=== PATIENT | female | born 1960 | race Caucasian/White ===

== ENCOUNTER 2017-09-16 10:58 | Emergency (ER) | payer OTHER ==
[~2017-09-16] VITALS: Ht 167.6 cm; Wt 113.4 kg
[~2017-09-16 10:58] MED LIST: Ativan1 MG PO; CITA20 PO; CLOZ100 PO; DIPH50 PO; DIVA250ER PO; FAMO20 PO; FAMO40 PO; FURO80 PO; GEODON; HYDHCL25 PO; HYDPAM25; HYDPAM25 PO; Haldol 5 mg Tab5 MG PO; INVEGA; LAVAP17G PO; LEVSOD100 PO; LEVSOD125; LORA1 PO; METPRE4DP PO; MULVITMIND PO; Metamucil Smooth1 EA PO; PRED20 PO; RANI150 PO; SULTRIDS PO; SYNTHROID112 MCG PO; TRAZ100; TRAZ100 PO; ZIPR80; ZIPR80 PO
[2017-09-16] MEDS ORDERED: OXYB5 PO (11:53)
[2017-09-16] MEDS ORDERED: NYSTATIN1 EAC1 TOP (11:54)
[2018-08-11] MEDS ORDERED: Anucort-Hc25 MG PR (20:17)
[2018-08-18] MEDS ORDERED: Kristalose20 GM PO (14:01)
== END 2017-09-16 13:28 | disposition home or self-care (01) ==
LOC: ER 10:58
DX: R53.1 Weakness (principal); R05 Cough; F41.9 Anxiety disorder, unspecified; E66.01 Morbid (severe) obesity due to excess calories; R50.9 Fever, unspecified; W18.30XA Fall on same level, unspecified, initial encounter; Z88.0 Allergy status to penicillin; Z88.8 Allergy status to other drugs, medicaments and biological substances; Z79.899 Other long term (current) drug therapy; I50.9 Heart failure, unspecified; Z87.891 Personal history of nicotine dependence
CPT/HCPCS: 36415; 71046; 73502; 82947; 99283

== ENCOUNTER → 2019-04-29 | Outpatient (CLI) | payer OTHER ==
[~2019-04-29] MED LIST changes: +Anucort-Hc25 MG PR; +BISA5EC PO; +CITRATE OF MAG296 ML PO; +Kristalose20 GM PO; +Miralax17 GM PO; +NYSTATIN1 EAC1 TOP; +OXYB5 PO
== END | disposition home or self-care (01) ==
LOC: LAB SHORT 13:42 → LAB 13:42
DX: N76.0 Acute vaginitis (principal); N95.2 Postmenopausal atrophic vaginitis
CPT/HCPCS: 87070; 87205

== ENCOUNTER 2019-05-15 11:22 | Emergency (ER) | payer OTHER ==
[~2019-05-15] VITALS: Ht 167.6 cm; Wt 112.0 kg
[~2019-05-15 11:22] MED LIST changes: -BISA5EC PO; -CITRATE OF MAG296 ML PO; -Miralax17 GM PO
[2019-05-15] MEDS ORDERED: BISA5EC PO (12:58)
[2019-05-15] MEDS ORDERED: CITRATE OF MAG296 ML PO (12:58)
== END 2019-05-15 13:43 | disposition home or self-care (01) ==
LOC: ER 11:22
DX: K59.00 Constipation, unspecified (principal); F31.9 Bipolar disorder, unspecified; F20.9 Schizophrenia, unspecified; I50.9 Heart failure, unspecified; Z79.899 Other long term (current) drug therapy; Z88.0 Allergy status to penicillin; Z88.8 Allergy status to other drugs, medicaments and biological substances; Z91.018 Allergy to other foods
CPT/HCPCS: 74018; 99283-25

== ENCOUNTER 2019-05-19 08:55 | Emergency (ER) | payer OTHER ==
[~2019-05-19] VITALS: Ht 167.6 cm; Wt 113.4 kg
[~2019-05-19 08:55] MED LIST changes: +BISA5EC PO; +CITRATE OF MAG296 ML PO
[2019-05-19 09:59] LABS: BASOPHILS ABSOLUTE AUTO 0.02 K/mm3 (0.00-0.23); BASOPHILS PERCENT AUTO 0 % (0-2); EOSINOPHILS PERCENT AUTO 0 % (0-6); Hematocrit 41.7 % (33.0-51.0); Hemoglobin 12.9 g/dL (11.5-16.0); IMMATURE GRAN ABSOLUTE AUTO 0.09 K/mm3 (0.00-0.10); IMMATURE GRAN PERCENT AUTO 1 % (0-1); LYMPHOCYTES ABSOLUTE AUTO 1.07 K/mm3 (0.84-5.20); LYMPHOCYTES PERCENT AUTO 17 % (21-46); MONOCYTES ABSOLUTE AUTO 0.84 K/mm3 (0.16-1.47); MONOCYTES PERCENT AUTO 13 % (4-13); Mean Corpuscular HGB 30.4 pg (26.0-34.0); Mean Corpuscular HGB Conc 30.9 g/dL (31.5-36.5); Mean Corpuscular Volume 98 fL (80-100); Mean Platelet Volume 10.4 fL (9.1-12.4); NEUTROPHILS ABSOLUTE AUTO 4.46 K/mm3 (1.96-9.15); NEUTROPHILS PERCENT AUTO 69 % (41-73); Platelet Count 244 K/mm3 (150-400); RDW Coefficient Variation 14.1 % (11.7-14.2); Red Blood Cell Count 4.24 M/mm3 (3.80-5.20); White Blood Cell Count 6.48 K/mm3 (4.00-11.30)
[2019-05-19 10:21] LABS: Anion Gap 5 mmol/L (6-16); Blood Urea Nitrogen 12 mg/dL (8-24); Bun/Creatinine Ratio 18.7 (12.0-20.0); CO2, Blood 31 mmol/L (21-32); Calcium, Blood 8.4 mg/dL (8.5-10.1); Chloride, Blood 104 mmol/L (98-108); Creatinine, Blood 0.64 mg/dL (0.40-1.00); Glomerular Filtration Rate >60 (60-); Glucose, Blood 109 mg/dL (70-99); Potassium, Blood 3.8 mmol/L (3.5-5.5); Sodium, Blood 140 mmol/L (136-145); Valproic Acid 39.1 ug/mL (50.0-100.0)
[2019-05-19] MEDS ORDERED: Miralax17 GM PO (13:10)
== END 2019-05-19 13:34 | disposition home or self-care (01) ==
LOC: ER 08:55
PROVIDERS: Emergency Medicine
DX: K59.00 Constipation, unspecified (principal); K64.4 Residual hemorrhoidal skin tags; F31.9 Bipolar disorder, unspecified; F20.9 Schizophrenia, unspecified; Z87.891 Personal history of nicotine dependence; Z88.0 Allergy status to penicillin; Z91.018 Allergy to other foods; Z88.8 Allergy status to other drugs, medicaments and biological substances; Z79.899 Other long term (current) drug therapy
CPT/HCPCS: 36415; 80048; 80164; 84443; 85025; 99283

== ENCOUNTER 2019-06-17 11:40 | Emergency (ER) | payer OTHER ==
[~2019-06-17] VITALS: Ht 167.6 cm; Wt 116.6 kg
[~2019-06-17 11:40] MED LIST changes: +Miralax17 GM PO
== END 2019-06-17 14:29 | disposition home or self-care (01) ==
LOC: ER 11:40
DX: S40.022A Contusion of left upper arm, initial encounter (principal); S30.1XXA Contusion of abdominal wall, initial encounter; I50.9 Heart failure, unspecified; F31.9 Bipolar disorder, unspecified; E03.9 Hypothyroidism, unspecified; Z88.0 Allergy status to penicillin; Z88.8 Allergy status to other drugs, medicaments and biological substances; Z91.018 Allergy to other foods; Z79.899 Other long term (current) drug therapy; Z87.891 Personal history of nicotine dependence; W06.XXXA Fall from bed, initial encounter
CPT/HCPCS: 71046; 73060; 73070; 73552; 99283-25

== ENCOUNTER 2019-11-23 19:14 | Emergency (ER) | payer OTHER ==
[~2019-11-23] VITALS: Ht 157.5 cm; Wt 120.2 kg
[2019-11-23 20:43] LABS: BASOPHILS ABSOLUTE AUTO 0.04 K/mm3 (0.00-0.23); BASOPHILS PERCENT AUTO 1 % (0-2); EOSINOPHILS ABSOLUTE AUTO 0.01 K/mm3 (0.00-0.68); EOSINOPHILS PERCENT AUTO 0 % (0-6); Hematocrit 43.3 % (33.0-51.0); Hemoglobin 13.7 g/dL (11.5-16.0); IMMATURE GRAN ABSOLUTE AUTO 0.09 K/mm3 (0.00-0.10); IMMATURE GRAN PERCENT AUTO 1 % (0-1); LYMPHOCYTES ABSOLUTE AUTO 2.03 K/mm3 (0.84-5.20); LYMPHOCYTES PERCENT AUTO 32 % (21-46); MONOCYTES ABSOLUTE AUTO 0.85 K/mm3 (0.16-1.47); MONOCYTES PERCENT AUTO 14 % (4-13); Mean Corpuscular HGB 30.6 pg (26.0-34.0); Mean Corpuscular HGB Conc 31.6 g/dL (31.5-36.5); Mean Corpuscular Volume 97 fL (80-100); Mean Platelet Volume 10.4 fL (9.1-12.4); NEUTROPHILS ABSOLUTE AUTO 3.29 K/mm3 (1.96-9.15); NEUTROPHILS PERCENT AUTO 52 % (41-73); Platelet Count 228 K/mm3 (150-400); RDW Coefficient Variation 13.2 % (11.7-14.2); RDW Standard Deviation 47.4 fL (35.1-46.3); Red Blood Cell Count 4.48 M/mm3 (3.80-5.20); White Blood Cell Count 6.31 K/mm3 (4.00-11.30)
[2019-11-23 21:03] LABS: Alanine Aminotransfer (ALT/SGP 22 U/L (12-78); Albumin, Blood 3.2 g/dL (3.4-5.0); Albumin/Globulin Ratio 0.9 (0.8-1.8); Alk Phos 93 U/L (50-136); Anion Gap 6 mmol/L (6-16); Aspartate Aminotrans (AST/SGOT 17 U/L (12-37); Bilirubin, Total 0.1 mg/dL (0.1-1.0); Blood Urea Nitrogen 10 mg/dL (8-24); Bun/Creatinine Ratio 15.5 (12.0-20.0); CO2, Blood 30 mmol/L (21-32); Calcium, Blood 8.7 mg/dL (8.5-10.1); Chloride, Blood 102 mmol/L (98-108); Creatinine, Blood 0.65 mg/dL (0.40-1.00); Globulin, Blood 3.6 g/dL (2.2-4.0); Glomerular Filtration Rate >60 (60-); Glucose, Blood 137 mg/dL (70-99); Potassium, Blood 3.8 mmol/L (3.5-5.5); Sodium, Blood 138 mmol/L (136-145); Total Protein, Blood 6.8 g/dL (6.4-8.2)
[2019-11-23] MEDS ORDERED: HYDACE25S PR (21:33)
== END 2019-11-23 21:45 | disposition home or self-care (01) ==
LOC: ER 19:14
PROVIDERS: Physician Assistant
DX: K64.4 Residual hemorrhoidal skin tags (principal); K64.8 Other hemorrhoids; F20.9 Schizophrenia, unspecified; F31.9 Bipolar disorder, unspecified; I50.9 Heart failure, unspecified; Z88.0 Allergy status to penicillin; Z88.8 Allergy status to other drugs, medicaments and biological substances; Z91.018 Allergy to other foods; Z79.899 Other long term (current) drug therapy; Z87.891 Personal history of nicotine dependence
CPT/HCPCS: 36415; 80053; 82272; 85025; 86850; 86900; 86901; 93005; 93010; 99283-25

== ENCOUNTER 2020-01-26 07:21 | Emergency (ER) | payer OTHER ==
[~2020-01-26] VITALS: Ht 170.2 cm; Wt 113.4 kg
[~2020-01-26 07:21] MED LIST changes: +HYDACE25S PR
[2020-01-26] MEDS ORDERED: ATOR20 PO (07:40)
[2020-01-26] MEDS ORDERED: Magic Bullet10 MG PR (09:13)
[2020-01-26] MEDS ORDERED: Golytely Solu4000 ML PO (09:13)
== END 2020-01-26 09:22 | disposition home or self-care (01) ==
LOC: ER 07:21
DX: K59.00 Constipation, unspecified (principal); F20.9 Schizophrenia, unspecified; F31.9 Bipolar disorder, unspecified; I50.9 Heart failure, unspecified; Z88.0 Allergy status to penicillin; Z88.8 Allergy status to other drugs, medicaments and biological substances; Z91.018 Allergy to other foods; Z79.899 Other long term (current) drug therapy; Z87.891 Personal history of nicotine dependence
CPT/HCPCS: 74019; 99283-25

== ENCOUNTER 2021-01-07 11:19 | Emergency (ER) | payer OTHER ==
[~2021-01-07] VITALS: Ht 167.6 cm; Wt 104.3 kg
[~2021-01-07 11:19] MED LIST changes: +ATOR20 PO; +Golytely Solu4000 ML PO; +Magic Bullet10 MG PR
[2021-01-07] MEDS ORDERED: Bactrim Ds Tab1 EACH PO (12:11)
[2021-01-07] MEDS ORDERED: Mupirocin22 GM TOP (12:11)
== END 2021-01-07 12:18 | disposition home or self-care (01) ==
LOC: ER 11:19
DX: L02.31 Cutaneous abscess of buttock (principal); I50.9 Heart failure, unspecified; E03.9 Hypothyroidism, unspecified; Z88.0 Allergy status to penicillin; Z88.8 Allergy status to other drugs, medicaments and biological substances; Z79.899 Other long term (current) drug therapy
CPT/HCPCS: 99282

== ENCOUNTER 2021-07-16 12:36 | Emergency (ER) | payer OTHER ==
[~2021-07-16] VITALS: Ht 165.1 cm; Wt 106.1 kg
[~2021-07-16 12:36] MED LIST changes: +Bactrim Ds Tab1 EACH PO; +Mupirocin22 GM TOP
[2021-07-16 15:23] LABS: BASOPHILS ABSOLUTE AUTO 0.02 K/mm3 (0.00-0.23); BASOPHILS PERCENT AUTO 0 % (0-2); EOSINOPHILS PERCENT AUTO 0 % (0-6); Hematocrit 40.1 % (33.0-51.0); IMMATURE GRAN ABSOLUTE AUTO 0.06 K/mm3 (0.00-0.10); IMMATURE GRAN PERCENT AUTO 1 % (0-1); LYMPHOCYTES ABSOLUTE AUTO 1.51 K/mm3 (0.84-5.20); LYMPHOCYTES PERCENT AUTO 28 % (21-46); MONOCYTES ABSOLUTE AUTO 0.82 K/mm3 (0.16-1.47); MONOCYTES PERCENT AUTO 15 % (4-13); Mean Corpuscular HGB 30.4 pg (26.0-34.0); Mean Corpuscular HGB Conc 32.4 g/dL (31.5-36.5); Mean Corpuscular Volume 94 fL (80-100); Mean Platelet Volume 10.7 fL (9.1-12.4); NEUTROPHILS ABSOLUTE AUTO 2.99 K/mm3 (1.96-9.15); NEUTROPHILS PERCENT AUTO 55 % (41-73); Platelet Count 202 K/mm3 (150-400); RDW Standard Deviation 44.6 fL (35.1-46.3); Red Blood Cell Count 4.27 M/mm3 (3.80-5.20)
[2021-07-16 15:48] LABS: Alanine Aminotransfer (ALT/SGP 20 U/L (12-78); Albumin, Blood 2.9 g/dL (3.4-5.0); Albumin/Globulin Ratio 0.8 (0.8-1.8); Alk Phos 85 U/L (50-136); Anion Gap 5 mmol/L (6-16); Aspartate Aminotrans (AST/SGOT 17 U/L (12-37); Bilirubin, Total 0.2 mg/dL (0.1-1.0); Blood Urea Nitrogen 8 mg/dL (8-24); Bun/Creatinine Ratio 14.2 (12.0-20.0); CO2, Blood 28 mmol/L (21-32); Calcium, Blood 8.5 mg/dL (8.5-10.1); Chloride, Blood 104 mmol/L (98-108); Creatinine, Blood 0.56 mg/dL (0.40-1.00); Globulin, Blood 3.7 g/dL (2.2-4.0); Glomerular Filtration Rate >60 (60-); Glucose, Blood 92 mg/dL (70-99); Potassium, Blood 3.9 mmol/L (3.5-5.5); Sodium, Blood 137 mmol/L (136-145); Total Protein, Blood 6.6 g/dL (6.4-8.2); Troponin I <0.015 ng/mL (0.000-0.040)
== END 2021-07-16 17:54 | disposition home or self-care (01) ==
LOC: ER 12:36
PROVIDERS: Emergency Medicine
DX: R55 Syncope and collapse (principal); S00.83XA Contusion of other part of head, initial encounter; I50.9 Heart failure, unspecified; E03.9 Hypothyroidism, unspecified; G47.30 Sleep apnea, unspecified; Z87.891 Personal history of nicotine dependence; W01.10XA Fall on same level from slipping, tripping and stumbling with subsequent striking against unspecified object, initial encounter
CPT/HCPCS: 36415; 70450; 80053; 84484; 85025; 93005; 93010; 99284-25; J7030

== ENCOUNTER 2021-09-07 18:36 | Emergency (ER) | payer OTHER ==
[~2021-09-07] VITALS: Ht 167.6 cm; Wt 104.3 kg
[2021-09-07] MEDS ORDERED: THERA-D2000 UNIT PO (19:32)
[2021-09-07] MEDS ORDERED: Magic Bullet10 MG PR (21:23)
[2021-09-07] MEDS ORDERED: LAVAP4L PO (21:23)
== END 2021-09-07 21:35 | disposition home or self-care (01) ==
LOC: ER 18:36
DX: K59.00 Constipation, unspecified (principal); Z88.0 Allergy status to penicillin; Z88.8 Allergy status to other drugs, medicaments and biological substances; Z79.899 Other long term (current) drug therapy; I50.9 Heart failure, unspecified; E03.9 Hypothyroidism, unspecified; G47.30 Sleep apnea, unspecified; Z87.891 Personal history of nicotine dependence
CPT/HCPCS: 74019; 99283-25

== ENCOUNTER 2022-08-16 09:03 | Emergency (ER) | payer OTHER ==
[~2022-08-16] VITALS: Ht 167.6 cm; Wt 127.0 kg
[~2022-08-16 09:03] MED LIST changes: +LAVAP4L PO; +THERA-D2000 UNIT PO
[2022-08-16 10:38] LABS: BASOPHILS ABSOLUTE AUTO 0.03 K/mm3 (0.00-0.23); BASOPHILS PERCENT AUTO 0 % (0-2); EOSINOPHILS PERCENT AUTO 0 % (0-6); Hematocrit 43.2 % (33.0-51.0); Hemoglobin 14.7 g/dL (11.5-16.0); IMMATURE GRAN ABSOLUTE AUTO 0.09 K/mm3 (0.00-0.10); IMMATURE GRAN PERCENT AUTO 1 % (0-1); LYMPHOCYTES ABSOLUTE AUTO 0.97 K/mm3 (0.84-5.20); LYMPHOCYTES PERCENT AUTO 11 % (21-46); MONOCYTES ABSOLUTE AUTO 1.33 K/mm3 (0.16-1.47); MONOCYTES PERCENT AUTO 16 % (4-13); Mean Corpuscular HGB 30.8 pg (26.0-34.0); Mean Corpuscular Volume 90 fL (80-100); Mean Platelet Volume 9.6 fL (9.1-12.4); NEUTROPHILS ABSOLUTE AUTO 6.18 K/mm3 (1.96-9.15); NEUTROPHILS PERCENT AUTO 72 % (41-73); Platelet Count 362 K/mm3 (150-400); RDW Coefficient Variation 12.8 % (11.7-14.2); RDW Standard Deviation 42.1 fL (35.1-46.3); Red Blood Cell Count 4.78 M/mm3 (3.80-5.20)
[2022-08-16 10:55] LABS: Albumin, Blood 3.2 g/dL (3.4-5.0); Albumin/Globulin Ratio 0.7 (0.8-1.8); Bilirubin, Total 0.5 mg/dL (0.1-1.0); Bun/Creatinine Ratio 13.2 (12.0-20.0); Calcium, Blood 9.4 mg/dL (8.5-10.1); Creatinine, Blood 0.53 mg/dL (0.40-1.00); Globulin, Blood 4.6 g/dL (2.2-4.0); Potassium, Blood 3.1 mmol/L (3.5-5.5); Total Protein, Blood 7.8 g/dL (6.4-8.2)
[2022-08-16] MEDS ORDERED: DIVA250ER PO (14:03)
[2022-08-16] MEDS ORDERED: K-Dur10 MEQ PO (15:23)
[2022-08-17] MEDS ORDERED: Aspir 8181 MG PO (17:11)
== END 2022-08-16 15:47 | disposition home or self-care (01) ==
LOC: ER 09:03
PROVIDERS: Physician Assistant
DX: R53.1 Weakness (principal); R73.9 Hyperglycemia, unspecified; E87.6 Hypokalemia; E03.9 Hypothyroidism, unspecified; I50.9 Heart failure, unspecified; Z79.899 Other long term (current) drug therapy; Z79.890 Hormone replacement therapy; Z88.0 Allergy status to penicillin; Z88.8 Allergy status to other drugs, medicaments and biological substances; Z91.09 Other allergy status, other than to drugs and biological substances; Z87.891 Personal history of nicotine dependence
CPT/HCPCS: 36415; 71046; 80053; 85025; A9270

== ENCOUNTER 2022-08-17 15:27 | Observation (INO) | payer OTHER ==
[~2022-08-17] VITALS: Ht 167.6 cm; Wt 104.6 kg
[~2022-08-17 15:27] MED LIST changes: +ATOR10 PO; -ATOR20 PO; +FURO40 PO; -FURO80 PO; +K-Dur10 MEQ PO
[2022-08-17] MEDS ORDERED: Aspir 8181 MG PO (17:11)
[2022-08-17 20:09] LABS: BASOPHILS ABSOLUTE AUTO 0.04 K/mm3 (0.00-0.23); BASOPHILS PERCENT AUTO 1 % (0-2); EOSINOPHILS ABSOLUTE AUTO 0.01 K/mm3 (0.00-0.68); EOSINOPHILS PERCENT AUTO 0 % (0-6); Hematocrit 40.9 % (33.0-51.0); Hemoglobin 13.6 g/dL (11.5-16.0); IMMATURE GRAN PERCENT AUTO 1 % (0-1); LYMPHOCYTES ABSOLUTE AUTO 1.65 K/mm3 (0.84-5.20); LYMPHOCYTES PERCENT AUTO 22 % (21-46); MONOCYTES ABSOLUTE AUTO 1.14 K/mm3 (0.16-1.47); MONOCYTES PERCENT AUTO 16 % (4-13); Mean Corpuscular HGB 30.6 pg (26.0-34.0); Mean Corpuscular HGB Conc 33.3 g/dL (31.5-36.5); Mean Corpuscular Volume 92 fL (80-100); Mean Platelet Volume 9.7 fL (9.1-12.4); NEUTROPHILS ABSOLUTE AUTO 4.43 K/mm3 (1.96-9.15); NEUTROPHILS PERCENT AUTO 60 % (41-73); Platelet Count 353 K/mm3 (150-400); RDW Coefficient Variation 13.1 % (11.7-14.2); RDW Standard Deviation 43.8 fL (35.1-46.3); Red Blood Cell Count 4.45 M/mm3 (3.80-5.20); White Blood Cell Count 7.37 K/mm3 (4.00-11.30)
[2022-08-17 20:19] LABS: Acetaminophen, Random <2.0 ug/mL (10.0-30.0); Alanine Aminotransfer (ALT/SGP 32 U/L (12-78); Albumin/Globulin Ratio 0.7 (0.8-1.8); Alk Phos 79 U/L (50-136); Anion Gap 6 mmol/L (6-16); Aspartate Aminotrans (AST/SGOT 50 U/L (12-37); Bilirubin, Total 0.4 mg/dL (0.1-1.0); Blood Urea Nitrogen 6 mg/dL (8-24); Bun/Creatinine Ratio 11.6 (12.0-20.0); CO2, Blood 34 mmol/L (21-32); Calcium, Blood 8.6 mg/dL (8.5-10.1); Chloride, Blood 97 mmol/L (98-108); Creatinine, Blood 0.52 mg/dL (0.40-1.00); Ethanol (Alcohol), Blood, Med <3 mg/dL; Globulin, Blood 4.2 g/dL (2.2-4.0); Glomerular Filtration Rate 104 (60-); Glucose, Blood 204 mg/dL (70-99); Salicylate <1.7 mg/dL (2.8-20.0); Sodium, Blood 137 mmol/L (136-145); Total Protein, Blood 7.2 g/dL (6.4-8.2)
--- NOTE | 2022-08-18 23:38 | NUR ---
2320 PT ARRIVED TO ROOM. ASSESSMENT COMPLETE. VITALS WDL. PT DENIES ANY PAIN/CP/SOB/ ANY OTHER S/S OF DISTRESS. LUNGS CLEAR, NO COUGH. SKIN ASSESSMENT COMPLETE, SKIN INTACT, NO ISSUES. PT ORIENTED X3, UNSURE OF SITUATION. PT CONTINIOUSLY REPEATS SELF WHEN ASKED A QUESTION, RAPID TALKING. PT ABLE TO MAKE NEEDS KNOWN, EDUCATED FREIGHT SERVICE INSPECTOR LIGHT AND PLAN OF CARE. PT EATING A SNACK, NO SWALLOW ISSUES. PT SOCIAL ADMIT, LOOKING FOR PLACEMENT CAN NO LONGER CARE FOR PT.
--- NOTE | 2022-08-19 03:16 | NUR ---
SHIFT SUMMARY NO CHANGES IN PT CONDITION SINCE ADMISSION. ABLE TO MAKE NEEDS KNOWN, CALL LIGHT IN REACH
--- NOTE | 2022-08-19 11:02 | NUR ---
DR DAVIS AND APS SHORTY ROUNDED ON PATIENT, PATIENT SLEEPING, MOANS A TIMES, ANSWERS FEW YES OR NO QUESTIONS, MEDICATIONS HELD THIS AM FOR DROWSYNESS, BED ALARM ON
[2022-08-19 22:34] LABS: U Amphetamine Screen Not Detected; U Barbituate Screen Not Detected; U Benzodiazapine Screen Not Detected; U Buprenorphine Screen Not Detected; U Cannabinoids Screen DETECTED; U Cocaine Screen Not Detected; U Methadone Screen Not Detected; U Methamphetamine Screen Not Detected; U Opiates Screen Not Detected; U Oxycodone Screen Not Detected; U Phencyclidine Screen Not Detected; U Propoxyphene Screen Not Detected
--- NOTE | 2022-08-20 03:44 | NUR ---
SHIFT SUMMARY NO OVERNIGHT EVENTS. FAMILY/FRIENDS VISITING PATIENT AT BEGINING OF SHIFT. PT BECOMES EMOTIONAL WHEN SHE IS IN NEED OF SOMETHING. PT STARTS CRYING WHEN SHE IS UNCOMFORTABLE, NEEDS BATHROOM, HUNGRY. NEEDS REMINDING TO USE CALL LIGHT WHEN SHE NEEDS ASSISTANCE FOR HELP. DENIES ANY PAIN/SOB/ S/S OF DISTRESS. PT HAS PRODUCTIVE COUGH. AMBULATING TO BATHROOM. BED ALARM ON
--- NOTE | 2022-08-20 17:39 | NUR ---
SHIFT SUMMARY: PATIENT ALERT AND ORIENTED TO SELF, PERSON AND SORROUNDINGS. PATIENT WAS VERY DROWSY BEGINNING OF SHIFT BUT IT IS IMPROVING T/O THE DAY. PATIENT WAS ABLE TO SIT-UP IN THE CHAIR FOR LUNCH. PATIENT REQUESTED TO BE TRANSFERRED BACK IN BED AFTER SITTING UP IN CHAIR FOR AND HOUR. PATIENT DOES USE CALL LIGHT AND YELLS OUT FOR ASSISTANCE. PATIENT CONTINENT OF URINE. AMBULATES TO BATHROOM AND BACK IN BED WITH SBA, FWW AND GAITBELT. DENIES CP/CHEST DISCOMFORT. LUNGS CLEAR T/O TO AUSCULATION. DENIES SOB. PATIENT ON RA c SPO2 ABOVE 92% T/O SHIFT. PATIENT HAS PRODUCTIVE COUGH c THICK YELLOW SPUTUM. VITAL SIGNS REVIEWED. IV TO ABBY SALINE LOCKED. BED ALARM ON FOR SAFETY. CALL LIGHT IN REACH.
--- NOTE | 2022-08-21 04:46 | NUR ---
SUMMARY: PATIENT ALERT AND ORIENTED X2 OVERNIGHT. CONFUSED ABOUT SITUATION AND TIME. PATIENT FREQUENTLY TRAILS OFF SUBJECT WHEN ASKING ASSESSMENT QUESTIONS AND IS A POOR HISTORIAN. COARSE LUNG SOUNDS. PATIENT HAS SUCTION AT BEDSIDE SHE IS FREQUENTLY USING TO EXPELL SECRETIONS. THICKENED LIQUIDS GIVEN. PATIENT NEEDS SWALLOW EVAL. CRUSHED MEDS. PATIENT COMPLAINED OF HEADACHE, GAVE TYLENOL. NO ACUTE EVENTS. VSS. PATIENT HR SLIGHTLY ELEVATED.
--- NOTE | 2022-08-21 04:54 | NUR ---
SUMMARY: PATIENT AOX3 OVERNIGHT. DROWSY. OCCASIONALLY CALLS OUT IN HER SLEEP BUT PLEASANT AND COOPERATIVE WITH CARE WHEN AWAKE. PATIENT HAS A PRODUCTIVE COUGH. NO ACUTE EVENTS OVERNIGHT. VSS. ENCOURAGED PATIENT TO TURN IN BED EVERY FEW HOURS TO PREVENT SKIN BREAKDOWN.
--- NOTE | 2022-08-21 17:42 | NUR ---
SHIFT SUMMARY: NO NEW CHANGES WITH PATIENT CONDITION THIS SHIFT. PATIENT DECLINE TO SIT-UP IN THE CHAIR FOR LUNCH AND DINNER. PATIENT REMAIN IN BED T/O THIS SHIFT. PATIENT CONTINENT c URINE AND AMBULATES TO BATHROOM c SBA, FWW AND GAITBELT. VITAL SIGNS REVIEWED. IV TO ABBY SALINE LOCKED. BED ALARM ON FOR SAFETY AND CALL LIGHT IN REACH.
--- NOTE | 2022-08-22 04:31 | NUR ---
SUMMARY: NO ACUTE EVENTS OVERNIGHT. PATIENT AOX3. VSS. PATIENT DECLINED TO TAKE A SHOWER THIS EVENTING. ENCOURAGED PATIENT TO TURN IN BED. PATIENT CONTINENT AND CAN AMBULATE TO RESTROOM WITH WALKER SBA. COUGH BETTER THIS EVENING THAN LAST. PATIENT STABLE ON ROOM AIR. CALLS OUT OCCASOINALLY. BED ALARM ON.
[2022-08-22 05:00] LABS: Hematocrit 39.9 % (33.0-51.0); Hemoglobin 12.7 g/dL (11.5-16.0); Mean Corpuscular HGB 30.3 pg (26.0-34.0); Mean Corpuscular HGB Conc 31.8 g/dL (31.5-36.5); Mean Corpuscular Volume 95 fL (80-100); Mean Platelet Volume 9.5 fL (9.1-12.4); Platelet Count 360 K/mm3 (150-400); RDW Coefficient Variation 13.1 % (11.7-14.2); RDW Standard Deviation 45.6 fL (35.1-46.3); Red Blood Cell Count 4.19 M/mm3 (3.80-5.20); White Blood Cell Count 8.27 K/mm3 (4.00-11.30)
[2022-08-22 05:23] LABS: Bun/Creatinine Ratio 23.4 (12.0-20.0); Calcium, Blood 8.8 mg/dL (8.5-10.1); Creatinine, Blood 0.6 mg/dL (0.40-1.00); Potassium, Blood 3.7 mmol/L (3.5-5.5)
--- NOTE | 2022-08-22 17:54 | NUR ---
SHIFT SUMMARY: PT A/O X 3, STANDBY ASSIST TO BATHROOM. PT IS COUGHING UP GREEN THICK SPUTUM. SAMPLE SENT TO LAB. COUGH IS OCCASIONAL. PT HAD NO OTHER COMPLAINTS OR CONCERNS. PT WAS RESISTIVE TO GETTING UP TO CHAIR TODAY WHEN OFFERED. PT PREFERRED STAYING IN BED STATING "I JUST WANT TO DO WHAT I WANT TO DO." PT WORKED WITH OT. SPOKE TO PT AND THEY ALREADY DID EVALUATION AND CLEARED HER FROM ANY FURTHER PT NEEDS.
--- NOTE | 2022-08-23 05:42 | NUR ---
SUMMARY: NO ACUTE EVENTS OVERNIGHT. PATIENT AOX3-4. PATIENT AWAKE MOST OF THE NIGHT. EDUCATED PATIENT HOW TO USE CALL LIGHT AND NOT TO CALL OUT AND SHE USED CALL LIGHT APPROPRIATLY FOR MOST OF EVENING AND DIDN'T CALL OUT. MOOD VERY LABILE LAUGHING LOUDLY TO CRYING WHILE PRESENT IN ROOM. PATIENT IS A SBA UP TO RESTROOM. CONTINENT OF URINE THROUGHOUT EVENING. OFFERED SHOWER A FEW TIMES, PATIENT DECLINES AT THIS TIME. VSS.
--- NOTE | 2022-08-23 10:58 | NUR ---
Spoke with Dr Gentile during rounds and discussed case. Plan for mini mental to determine if Pt has dementia. Dr Gentile requests assistance with determining decision maker for Pt. Pt resting in bed and is A&OX3. Pt unable to verbalize appropriate reason for hospital stay. She is A&O to person, place, current year. Pt closes her eyes and quits responding to questions. Ended visit to allow Pt to rest. Called and spoke with Pt's Somebody. Offered therapeutic listening as Somebody reports no longer having the ability to care for Pt. He does report willingness to participate in plan of care and make decisions for Pt. He does report plan to file for divorce. Spoke with RN Muna De Dios and discussed case further. Concerns brought up regarding comments spouse has made to ED Muna Suarez. Will place ethics consult to assist with determining decision maker. Palliative Care will remain available.
--- NOTE | 2022-08-23 13:37 | NUR ---
Ethics consult order received and processed. Medical history, social matrix, and concerns relating to incapacitation reviewed and discussed with palliative care. If the principal undergoes a throrough clinical evaluation, and is thereby deemed incapable of coherently engaging in treatment planning and medical decision making, then her legal spouse should be considered the default proxy for such conversations. Suspicions about his fitness as a best interest substitute, do not in themselves disqualify him from exercising this privilege. If a strong sentiment exists that he is a bad actor or will not operate in good margareth, then a legal process to revoke his standing in this regard would need to be formally pursued. This is not a course that I would recommend, unless the evidence is conscpicuous and non-anecdotal. Thank you for this consult. Sanju Wong ThD, MOY
--- NOTE | 2022-08-23 14:03 | NUR ---
Case Conference Note Spoke with Sanju Wong from Ethics. Please see Sanju's note. Discussed case and concerns regarding potential decion makers. After discussion it appears that Pt's spouse will be decion maker if Hospitalist deems Pt is not able to make decisions for herself. Palliative Care will remain available.
--- NOTE | 2022-08-23 18:06 | NUR ---
SHIFT SUMMARY: PT A/O X4 IND IN ROOM. PLEASANT AND COOPERATIVE WITH CARE. PT HAD PICC LINE PLACED THIS AM. CONTINUES TO BE ON DEXTROSE 10% VIA IV AT 140 ML/HR. PT PAIN AND NAUSEA MANAGED WITH MORPHINE 4 MG AND PHENERGRAN AT THIS TIME. NO OTHER CONCERNS FROM PT TODAY.
--- NOTE | 2022-08-23 18:09 | NUR ---
SHIFT SUMMARY: PT A/O X 3, STANDBY ASSIST. PT ENCOURAGED AND EDUCATED ON IMPORTANCE OF BEING UP IN CHAIR FOR MEALS AND MORE ACTIVE TOLERATED AND WAS MORE COMPLIANT TODAY. PT CONTINUES TO HAVE COUGH. ROBITUSSIN GIVEN AND COUGH LESS HARSH. PT GIVEN LACTULOSE, PRUNE JUICE FOR NO BM X 5 DAYS AND NO BM YET. WILL GIVE MIRALAX WITH DINNER. NO OTHER CONCERNS OR COMPLAINTS FROM PT AT THIS TIME.
--- NOTE | 2022-08-24 04:41 | NUR ---
SUMMARY: NO ACUTE EVENTS OVERNIGHT. PATIENT AOX3-4. MOOD VERY LABILE LAUGHING LOUDLY TO CRYING WHILE ALONE IN ROOM. PATIENT IS A SBA UP TO RESTROOM. CONTINENT OF URINE THROUGHOUT EVENING. ASSISTED PATIENT IN TAKING A SHOWER BEFORE BED. PATIENT NEEDS ASSISTANCE WITH ADLS LIKE SHOWERING AND STATES SHE IS UNABLE TO WIPE HERSELF AFTER USING RESTROOM. VSS. ORDERS RECIEVED FOR NO IV.
--- NOTE | 2022-08-24 17:28 | NUR ---
PATIENT A/OX1-2, VERY SLOW TO RESPOND AND OFTEN REPEATS THE SAME WORD MAKING IT DIFFICULT TO COMMUNICATE WITH HER. SPEECH CLEAR, BUT NONSENSICAL AND OFF TOPIC AT TIMES. PATIENT DOES NOT USE CALL LIGHT FOR ASSISTANCE AND OFTEN HOLLERS OUT FOR HELP, BED ALARM SET FOR SAFETY. UP WITH SBA AND FWW TO RESTROOM. CONTINENT OF URINE/STOOL. NO IV SITE. PSYCH CONSULT ORDERED TODAY.
--- NOTE | 2022-08-25 04:32 | NUR ---
SHIFT SUMMARY: Pt A/Ox2-3. She can be impulsive and forgetful so bed alarms utilized. This shift pt c/o cough- PRN tesslon pearles given. She become teary at times, when asking why she was upset pt did not have an answer. She is RA. She ambulates with SBA.
--- NOTE | 2022-08-25 18:03 | NUR ---
NO NEW CONCERNS THIS SHIFT. DR. HUMPHREYUFF IN THIS EVENING FOR PSYCH CONSULT AND IS RECOMMENDING GUARDIANSHIP FOR THIS PATIENT. UP WITH FWW AND SBA TO RESTROOM. NEEDS ENCOURAGEMENT TO GET UP IN CHAIR AND AMBULATE. VSS, ON RA. SKIN INTACT. PLEASANT AND COOPERATIVE WITH CARE, BUT DOES HAVE EPISODES OF CRYING AND UNABLE TO EXPLAIN WHAT SHE IS CRYING ABOUT. MOOD VERY LABILE, BUT IS EASILY REDIRECTABLE. FALL PRECAUTIONS IN PLACE, HAS BEEN BETTER ABOUT USING CALL LIGHT FOR ASSISTANCE TODAY.
--- NOTE | 2022-08-26 03:20 | NUR ---
Patient resting in bed, patient walked to bathroom on own setting off bed alarm, patient educated to please call for help before ambulating on her own to prevent harm. Patient previously laying in bed crying out saying help me, but unable to state exactly what she needed. When nurse attempted to communicate with them, patient became upset, patient educated there are other patients on floor, if she needs assistance to use call light instead of yelling out and disturbing other patients. After patient successfully used restroom they were able to better communicate with nurse, and discontinued crying out.
--- NOTE | 2022-08-26 10:13 | NUR ---
PATIENT HAD INTERVIEW WITH GIL FROM [facility].
--- NOTE | 2022-08-26 17:14 | NUR ---
SHIFT SUMMARY: NO ACUTE EVENTS. A&O TO SELF ONLY. CRIES OUT FOR HELP OFTEN. UP IN CHAIR FOR LUNCH, AMBULATES TO BR WITH SBA, IS IMPULSIVE, MOVES FAST. NO C/O PAIN. BOWEL MEDS STARTED. WHEN TRYING TO TALK TO GIL FROM [facility], SHE HAD EPISODES OF WORD SALAD, REPEATED PHRASES, WAS UNABLE TO ANSWER SOME QUESTIONS. REFUSED BATHING AND ORAL CARE TODAY. AWAITING PLACEMENT.
--- NOTE | 2022-08-27 07:40 | NUR ---
Shift Summary Pt AOx1-2, calls out frequently for help requesting to be boosted up in bed. Does not use call light, instructed on use multiple times. No documented BM sincie 08/18, gave bowel meds and PRN MoM. 1 assist to BSC w FWW and GB. Awaiting guardianship and placement. Pleasant and cooperative with care. VSS, no acute events.
--- NOTE | 2022-08-27 16:57 | NUR ---
SHIFT SUMMARY NO ACUTE CHANGES DURING SHIFT. PT ALERT TO SELF, CONFUSED, REPEATS SELF FREQUENTLY. PT REMAINS ON RA, X 1 ASSIST WITH FWW TO BATHROOM. PT UP OOB TO CHAIR FOR MEALS TODAY. NO C/O PAIN. PT PENDING PLACEMENT AT FACILITY. WILL CONTINUE TO MONITOR. CALL LIGHT WITHIN REACH.
--- NOTE | 2022-08-28 17:34 | NUR ---
SHIFT SUMMARY NO ACUTE CHANGES DURING SHIFT. PT ALERT TO SELF, CONFUSED. PT YELLS OUT ROOM FOR HELP, WILL NOT USE CALL LIGHT. BED ALARM IN PLACE. PT X 1 ASSIST TO BATHROOM WITH FWW. NO BM YET, CONTINUE BOWEL REGIMEN. NO C/O PAIN. CALL LIGHT WITHIN REACH.
--- NOTE | 2022-08-29 03:45 | NUR ---
ALERT TO SELF. ANXIOUS. YELLS OUT FREQUENTLY; OFTEN FOR MINOR NEEDS. SBA WITH WALKER TO BSC WITH FREQUENT LIQUID STOOL T/O SHIFT. DENIES PAIN AT THIS TIME, DOES C/O POSITIONAL DISCOMFORT; CUED/ ASSISTED TO REPOSITION FREQUENTLY T/O SHIFT. AWAITING GUARDIANSHIP /PLACEMENT. SLEEP PROMOTED. BED ALARM SET. CALL LIGHT IN REACH (RARELY USES APPROPRIATELY); ENCOURAGED TO MAKE NEEDS KNOWN. THIS RN ATTEMPTED TO REMAIN WITHIN EARSHOT T/O SHIFT IN ORDER TO PREVENT FALLS D/T IMPULISIVE ATTEMPTS TO GET UP ALONE.
--- NOTE | 2022-08-29 17:07 | NUR ---
SHIFT SUMMARY NO ACUTE CHANGES DURING SHIFT. PT ALERT TO SELF, CONFUSED. PT WITH LESS BM'S TODAY. PT SBA WITH FWW TO BATHROOM. PT UP TO CHAIR FOR MEALS. NO C/O PAIN. WILL CONTINUE TO MONITOR. PT PENDING FACILITY PLACEMENT. CALL LIGHT WITHIN REACH.
--- NOTE | 2022-08-30 06:07 | NUR ---
ALERT TO SELF. ANXIOUS. YELLS OUT FREQUENTLY; OFTEN FOR MINOR NEEDS. SBA WITH WALKER TO BATHROOM. C/O "SEVERE BURNING PAIN" TO BLE; TYLENOL GIVEN; MINIMALLY HELPFUL PER PATIENT. C/O POSITIONAL DISCOMFORT; CUED/ ASSISTED TO REPOSITION FREQUENTLY T/O SHIFT. AWAITING GUARDIANSHIP /PLACEMENT. SLEEP PROMOTED. BED ALARM SET. CALL LIGHT IN REACH (RARELY USES APPROPRIATELY); ENCOURAGED TO MAKE NEEDS KNOWN.
--- NOTE | 2022-08-30 16:56 | NUR ---
SHIFT SUMMARY ALERT, ORIENTED TO SELF, CONFUSED. YELLS OUT FREQUENTLY. NO COMPLAINTS OF PAIN T/O SHIFT. AMBULATES TO BATHROOM WITH FWW AND 1P ASSIST. BED ALARM ON. PT HAS TO BE ENCOURAGED TO MOVE HERSELF AND HELP REPOSITION. AWAITING GUARDIANSHIP/PLACEMENT. CURRENTLY RENSTING IN BED WATCHING TV. CALL LIGHT WITHIN REACH. NO ACUTE CHANGES DURING THIS SHIFT.
--- NOTE | 2022-08-31 02:56 | NUR ---
NO ACUTE CHANGES THIS SHIFT. ALERT TO SELF. ANXIOUS. YELLS OUT FREQUENTLY; OFTEN FOR MINOR NEEDS (I.E. TV ON/OFF). SBA WITH WALKER TO BATHROOM. L GROIN RASH CLEANED/ DRIED AND NYSTATIN POWDER APPLIED. C/O "BURNING PAIN" TO BLE; TYLENOL GIVEN; HELPFUL PER PATIENT, DENIES PAIN AT REASSESSMENT. C/O POSITIONAL DISCOMFORT; CUED/ ASSISTED TO REPOSITION FREQUENTLY T/O SHIFT. AWAITING GUARDIANSHIP /PLACEMENT. SLEEP PROMOTED. BED ALARM SET. CALL LIGHT IN REACH (RARELY USES APPROPRIATELY); ENCOURAGED TO MAKE NEEDS KNOWN.
--- NOTE | 2022-08-31 17:56 | NUR ---
PATIENT RESTLESS, UP AND DOWN FROM BED TO CHAIR. DOESN'T USE CALL APPROPRIATELY. IS ABLE TO PULL SELF UP IN BED WITH PROMPTS. PATIENT WIMPERS TO SELF. DURING ASSESSMENT BODY SOUNDS DIFFICULT TO ASSESS DUE TO THE WIMPERING. PATIENT WAS ASKED ABOUT HALLUCINATIONS BUT DECLINED TO ANSWER. GARDIANSHIP PLACEMENT IS THE GOAL/PLAN
--- NOTE | 2022-09-01 05:54 | NUR ---
WARD ASSISTANT SUMMARY: A&Ox2-3. AWARE OF LOCATION BUT NOT SITUATION. VERY TANGIBLE COMMUNICATION AND DIFFICULT TO GET A STRAIGHT ANSWER FROM. DOES NOT USE CALL LIGHT AND WILL IMPULSIVELY LEAVE BED TO GO TO THE BATHROOM, BUT WILL USE CALL LIGHT ONCE IN THE BATHROOM FOR ASSISTANCE WITH WIPING. IS OFTEN HEARD CRYING IN HER ROOM, BUT WHEN ASKED WHAT SHE NEEDS JUST STATES SHE HAS NOT BEEN ABLE TO GET COMFORTABLE SINCE YESTERDAY AT 6:30 AND DENIES SHE WAS CRYING. PRN APAP FOR GENERALIZED BODY ACHES AT BEDTIME. NO FEVER NOTED. WILL REPORT TO ONCOMING RN.
--- NOTE | 2022-09-01 17:23 | NUR ---
SHIFT SUMMARY: PT A/O X 3, STANDBY ASSIST. PT COOPERATIVE WITH CARE. PT HAD NO CONCERNS OR CHANGES TODAY. AWAITING PLACEMENT.
--- NOTE | 2022-09-02 07:51 | NUR ---
PAYROLL ASSISTANT SUMMARY: A&Ox2-3; ORIENTED TO SELF, PERSON AND PLACE AND SOMETIMES SITUATION, BUT HAS BEEN NOTED TO BE VERY MANIPULATIVE WITH STAFF. INSTEAD OF USING CALL LIGHT, WILL LAYIN BED AND SOB, LOUDER IF STAFF ARE IN THE HALLWAYS OUTSIDE OF HER ROOM. WHEN THIS RN WENT TO CHECK ON HER, PT STOPPED CRYING AND STATED, "NOT FROM YOU. I WANT CHERISH." WILL EVENTUALLY USE CALL LIGHT SOMETIMES. BED ALARM ACTIVATED SHE IS IMPULSIVE AND HAS URINARY URGENCY. WILL GET HERSELF TO THE BATHROOM AND PULL CALL CORD, EVEN IF STAFF IN ROOM, TO HAVE SOMEONE WIPE HER. OTHER TIMES, SHE WILL WIPE HERSELF. PRN APAP FOR GENERALIZED ACHES LAST NIGHT. GETS VERY FRUSTRATED AND CRIES, STATING SHE IS UNABLE TO GET COMFORTABLE. SPEECH IS RAPID AND STUTTERING, OFTEN HAVING DIFFICULTY FINDING THE WORDS SHE IS TRYIN TO FIND. AWAITING PLACEMENT. VSS. REPORT TO ONCOMING RN.
--- NOTE | 2022-09-02 18:20 | NUR ---
SHIFT SUMMARY: PT A/O X 3, STANDBY ASSIST TO BATHROOM. PT UP TO CHAIRS FOR MEALS. PT HAS BEEN COOPERATIVE WITH CARE. SHE IS EATING WELL AND DRINKING FLUIDS WELL. NO CONCERNS OR COMPLAINTS FROM PT TODAY. CONTINUES TO WAIT FOR PLACEMENT.
--- NOTE | 2022-09-03 03:49 | NUR ---
Patient is AOX4 at baseline with episodes of confusion on time and situation. She remain on room air and maintaing sats >90%, lung sounds clear, no SOB noted. Patient ambulated to bedside chair in the around 0100 HRS after she stated the bed was too unconfortable for her. She was transfered back to bed within an hour after falling asleep. She continues to have episodes of awakening and crying for staff members to straighten her covers, followed by deep sleep. Occational re-orioentation to place and sitution. Patient took all her meds whole without issue. Will continue to monitor.
--- NOTE | 2022-09-03 19:19 | NUR ---
SHIFT SUMMARY PT ALERT AND PLEASANTLY CONFUSED. NO ACUTE CHANGES. PT TYPICALLY CALLS OUT FOR NEEDS BUT WAS USING CALL LIGHT APPROPRIATELY DURING THE END OF SHIFT. PT VERY SLEEPY TODAY AND SLEPT ON AND OFF FOR MOST OF THE DAY. PT STATED SHE DID NOT GET ENOUGH SLEEP. REPORT GIVEN TO SANDBLAST CARVER NURSE.
--- NOTE | 2022-09-04 04:01 | NUR ---
Patient had a pleasant nigfht. Remains GCS 14, with episodes of crying in her sleep and states no apparent reason. She ambulated to the bathroom multiple times, and had a shower prior to bedtime. Pain concerns to general aches addressed at bedtime with 650mg of acetaminophen. Will continue to monitor pt.
--- NOTE | 2022-09-04 14:42 | NUR ---
PATIENT ASKING ABOUT DATE REPEATATIVE. "SO TODAY IS September, AND TONIGHT ITS September, RIGHT"? "A MALE OR FEMALE NURSE TOLD ME THAT TODAY IS September, AND THAT ISN'T RIGHT, THAT IS NOT RIGHT". "SO TODAY IS SEPTEMBER 04". INFORMATION THAT WAS CORRECT WAS GIVEN TO THE PATIENT, STILL WITH DOUBT GIVEN. APPEARS TO HAVE INCREASED CONFUSION WITH THE CHANGE OF THE YEAR.
--- NOTE | 2022-09-04 18:44 | NUR ---
PATIENT IS HERE WAITING FOR PLACEMENT. NO NEW CONCERNS. MOOD SEEMS TO BE GOOD TODAY. LAUGHING AT THIS SOCIAL SERVICE TECHNICIAN WHEN SHE SET HER CHAIR ALARM OFF AND STAFF RESPONDED RUNNING INTO ROOM.
--- NOTE | 2022-09-05 04:50 | NUR ---
SHIFT SUMAMRY NOC PT ORIENTED TO SELF. PT HAD EPISODES OF UNCONSOLABLE CRYING RELATED TO CALL LIGHT NOT BEING IN PREFERRED LOCATION BETWEEN LEGS. PT HAD C/O OF PN IN BUTT AND GIVEN TYLENOL WHICH DID NOT WORK. ORDER FOR TRAMADOL OBTAINED AND RELIEVED PN. PT HAS BEEN EMOTIONALLY LABILE SPEAKING IN REPEAT PATTERNS WITH WORD SALAD. PT IS AWAITING PLACEMENT PREFERRABLE IN AN ASSISTED LIVING FACILITY. PT IS CURRENTLY RESTING WITH BED ALARM ON, BED RAILS UP, BED IN LOWEST POSITION, AND CALL LIGHT WITHIN REACH.
--- NOTE | 2022-09-05 08:00 | NUR ---
pt a/ox1, to self, makes her needs known, repeats herself numerous times, says off things, but is cooperative, doesn't call before getting oob, so bed alarm is activated, lungs are clear dim in bases, resp even and unlabored, no cough noted, on r/a, hrr, no edema noted, ppp+1, cap refill <3sec, vs stable, afebrile, btx4, abd flat soft nontender, voids without diff, ambulates with sba to bathroom, also has pullups in place, skin has some bruising, otherwide c/w/d, diana johnson, call light in reach.
--- NOTE | 2022-09-05 18:21 | NUR ---
pt forgets to use call light to call for help and just yells and cries until some one comes, reoriented her to the call light. has had an uneventful day, no acute changes this shift. call light in reach.
--- NOTE | 2022-09-06 03:59 | NUR ---
SHIFT MOSTLY UNREMARKABLE. PATIENT WILL PERIODICALLY WAKE UP CONFUSED AND REQUESTING ASSISTANCE VIA YELLING BUT IS MOSTLY EASILY REDIRECTED AND GOES BACK TO SLEEP. PATIENT OTHERWISE SLEPT THROUGH SHIFT. CALL LIGHT LEFT WITHIN REACH.
--- NOTE | 2022-09-06 17:47 | NUR ---
SHIFT SUMMARY- PT YELLING OUT, EDUCATION FEDERAL JUDGE LIGHT. VSS. APPETITE OK. PT C/O PAIN, TREATED PER EMAR. DENIES, HALLUCINATIONS. PARANOIA NOTED, PLEASANT OTHERWISE. WILL CONTINUE TO MONITOR. CALL LIGHT IN REACH, CHAIR ALARM ON FOR SAFETY.
--- NOTE | 2022-09-07 04:02 | NUR ---
SHIFT MOSTLY UNREMARKABLE. PATIENT REPORTS INCREASING RIGHT SIDED PAIN THAT IS NOT QUITE ADEQUATELY MANAGED ON CURRENT EMAR REGIMEN. TREATED NONPHARMACOLOGICALLY VIA REPOSITIONING AND FLOATING WHICH ALLOWED FOR PATIENT TO SLEEP THROUGH MUCH OF SHIFT. SHIFT OTHERWISE UNREMARKABLE. CALL LIGHT LEFT WITHIN REACH.
--- NOTE | 2022-09-07 19:07 | NUR ---
SHIFT SUMMARY PTN AWAITING GUARDIANSHIP AND PLACEMENT. ALERT AND ORIENTED X2-3 WITH SPORADIC CONFUSION. EMOTIONAL AT TIMES, EASILY RE-DIRECTED. ENCOURAGED TO SHIFT POSITIONS OFF BUTTOCKS WHICH HAS SOME REDNESS THAT BLANCHES. LOWER LEGS WITH BLOTCHY BROWN SPOTS. PANNUS DAMP AND POWDERED PER EMAR. CONTINUE TO MONITOR.
--- NOTE | 2022-09-08 05:31 | NUR ---
SHIFT SUMMARY NOC PT A/O TO SELF AND SOMETIMES PERSON. GETS CONFUSED BUT IS EASILY REDIRECTABLE. PT HAD C/O PN IN BUTT AND MEDICATED PER EMAR WITH TYLENOL. PT HAS A FEW BOUTS OF UNCONSOLABLE CRYING WHICH WAS ALLEVIATED WITH REPOSITIONING AND PLACEMENT OF CALL LIGHT WITHIN PT PREFERENCE. NO ACUTE CHANGES TO REPORT. PT IS CURRENTLY RESTING WITH BED ALARM ON, BED RAILS UP, BED IN LOWEST POSITION, AND CALL LIGHT WITHIN REACH.
--- NOTE | 2022-09-08 17:00 | NUR ---
SHIFT SUMMARY NO NOTED CHANGES DURING THIS SHIFT. PTN CONTINUES TO CALL OUT RATHER THAN USING HER CALL BUTTON. SHE IS REMINDED ON EVERY OCCASION, BUT DOES NOT REMEMBER. PTN CRIES OR WHIMPERS, CALLS OUT, AND SOMETIMES IS JUST QUIET IN THE ROOM. SHE GETS UP TO THE CHAIR AND SITS FOR HOURS. WHEN SHE LIES DOWN IN THE BED SHE RESTS. SHE COMPLAINS OF PAIN IN HER UPPER LEGS, BACK, AND BUTTOCKS. TRAMADOL SEEMS TO WORK WELL AT Q8 HR, ABOUT HOUR 10 SHE ASKS FOR MORE PAIN MEDICATION. CONTINUE TO MONITOR.
--- NOTE | 2022-09-09 04:41 | NUR ---
SHIFT SUMMARY NOC PT ORIENTED TO SELF. HR ELEVATED BUT OTHERWISE STABLE. PT GETS CONFUSED EASILY BUT IS EASILY REDIRECTABLE. PT HAD C/O OF PAIN IN BUTT AND MEDICATED PER EMAR. NO ACUTE CHANGES. PT STILL AT BASELINE YELLING OUT FOR HELP WHEN LINEN OR CALL LIGHT ARE NOT IN PREFERRED POSITION. PT STILL AWAITING LTC PLACEMENT AND MEDICAID PROCESS HAS BEEN INITIATED. PT IS CURRENTLY RESTING WITH BED ALARM ON, BED RAILS UP, BED IN LOWEST POSITION, AND CALL LIGHT WITHIN REACH.
--- NOTE | 2022-09-09 19:43 | NUR ---
SHIFT SUMMARY: PT PLEASANT, ANXIOUS AND FOLLOWS DIRECTIONS. PT COMMUNICATES WITH STAFF WITH NEEDS. PT SBA WITH TRANSFERS, AMBULATION AND BED MOBILITY. PT HAD MODERATE PAIN AND MEDICATED PER EMAR PROTOCOL. PT HAD NO BEHAVIORS OR EPISODES OF CRYING OUT. PT IN BED WITH CALL LIGHT WITHIN REACH.
--- NOTE | 2022-09-10 06:10 | NUR ---
PRODUCT APPLICATIONS ENGINEER SUMMARY: A&O TO SELF AND PLACE. FREQUENTLY FORGETS TO USE CALL LIGHT AND WILL CRY AND SCREAM FOR HELP. VERY TEARFUL AND WHEN ASKED WHY SHE IS CRYING STATES, "BECAUSE I CANNOT GET COMFORTABLE! NO MATTER WHAT! NO MATTER WHAT!" WHEN ASKED HOW STAFF CAN HELP MAKE HER COMFORTABLE SHE ONLY CRIES MORE AND IS UNABLE TO COMMUNICATE NEEDS EFFECTIVELY. C / O 10/10 PAIN BUT WHEN TOLD PAIN MED NOT DUE FOR ANOTHER TWO HOURS REPLIES OK AND DOES NOT ASK AND DENIES OFFER OF APAP FOR B / T PAIN. AWAITING PLACEMENT SECONDARY TO COMPLEX SOCIAL SITUATION AND UNABLE TO RETURN HOME. EXPERIENCES A LOT OF ANXIETY T / O THE NIGHT AND IS OFTEN HEARD CRYING IN HER ROOM, AND WILL CRY LOUDER WHEN SHE HEARS PEOPLE OUT IN THE HALLWAY. WILL REPORT TO ONCOMING RN.
[2022-09-10 15:19] LABS: Source, Urine Clean Catch
[2022-09-10 15:25] LABS: Appearance, Urine Clear (Clear); Bilirubin, Urine Neg (Neg); Blood, Urine Neg (Neg); Glucose Qualitative, Urine Neg (Neg); Ketones, Urine Neg (Neg); Leukocyte Esterase, Urine Neg (Neg); Nitrite, Urine Neg (Neg); Protein, Urine Neg (Neg); Specific Gravity, Urine 1.015 (1.003-1.022); Urobilinogen, Urine NORM (Normal)
[2022-09-10 15:37] LABS: Color, Urine Pale Yellow (P-Yellow)
--- NOTE | 2022-09-10 19:30 | NUR ---
SHIFT SUMMARY: PT A/O X 3, STANDBY ASSIST. PT STEADY ON FEET. OBTAINED UA DUE TO PT HAVING FREQUENCY AND URGENCY AND CLOUDY URINE. UA WAS NEGATIVE FOR UTI. PT UP TODAY FOR MEALS. NO OTHER CONCERNS THROUGHOUT THE DAY.
--- NOTE | 2022-09-11 05:18 | NUR ---
MULTIPLE EFFECT EVAPORATOR OPERATOR SUMMARY: A&Ox3-4. CONTINUES TO BE SELECTIVE ABOUT CARE PARTICIPATING IN HER CARE. WILL USE CALL LIGHT SOMETIMES AND OTHER TIMES CRIES UNTIL STAFF ARRIVE IN HER ROOM. VERY EMOTIONALLY SENSITIVE AND OFTEN REQUIRES COACHING TO CALM DOWN. ENCOURAGED TO PARTICIPATE AND TAKE LEAD ON HER OWN CARE WHEN READJUSTING IN HER BED AND OTHER ADLs. PRN TRAMADOL FOR PAIN. CONTINUES TO ASK WHEN NEXT DOSE AVAILABLE AND LOOKS FORWARD TO IT . WHEN ASKED WHERE HER PAIN IS, SOMETIMES RESPONDS THAT SHE DOES NOT HAVE PAIN BUT WANTS TO KEEP TAKING IT AND OTHER TIMES REPORTS PAIN IN BUTT FROM POSITIONING. ENCOURAGED TO REPOSITION HERSELF. WILL REPORT TO ONCOMING RN.
--- NOTE | 2022-09-11 16:15 | NUR ---
EVENING NOTE PT COOPERATIVE WITH CARE. DR MAR ADJUSTED MEDICATIONS FOR HS. SHE TOOK A SHOWER THIS EVENING. SHE KEEPS YELLINBG OUT ABOUT BEING "MISERABLE ALL OVER." MEDICATED THIS MORNING WITH TRAMADOL AND TYLENOL WITH NO CHANGE IN HER ASSESSMENT OF MISERY. SHE WILL CLIMB OOB. BED ALARM IS ON. SHE IS STEADY WHEN WALKING. SHE TOOK A NAP FOR ABOUT AN HOUR. HER CALLED TO CHECK ON HER. HE STATED THAT IT'S TO DIFFICULT FOR HIM TO DRIVE IN TO SEE HER. EATING WELL. SHE REALLY LIKES PRUNE JUICE. SHE HAS REQUESTED X3. WHEN EVER SHE GETS FRUSTRATED SHE STARTS TO CRY AND SCREAM. REDIRECTS SOMETIMES. CONTINUE POC.
--- NOTE | 2022-09-12 06:35 | NUR ---
CLINICAL SERVICES DIRECTOR SUMMARY: A&Ox2-3 DEPENDING ON SITUATION. CALLS SOMETIMES, BUT GETS WORKED UP ABOUT TRYING TO GET OUT OF BED TO USE THE BATHROOM AND GETS FRUSTRATED BECAUSE SHE IS UNABLE TO FIGURE OUT HOW TO PUT DOWN FOOT OF BED AND HEAD OF BED. SEVERAL EPISODES OF OUTBURSTS OF CRYING AND YELLING, "I NEED YOUR HELP IN HERE!". CAN COMPLETE THESE TASKS WHEN SHE IS COACHED AND RESPONDS VERY WELL WITH POSITIVE AFFIRMATION. SEROQUEL 50MG STARTED LAST NIGHT BUT NO DIFFERENCE WAS NOTED IN BEHAVIORS OR AMOUNT OF SLEEP/REST PATIENT OBTAINED LAST NIGHT. C/O CONSTIPATION AND PRN MIRALAX ADMINISTERED. TRAMADOL x1 FOR C/O GENERALIZED BODY PAIN. AWAITING PLACEMENT. WILL REPORT TO ONCOMING RN.
--- NOTE | 2022-09-12 16:29 | NUR ---
DAYSHIFT SUMMARY Patient AO to self, redirected to place/time/situation. Patient impulsive gets OOB and walks to the bathroom. She will pull the call-light when walking back to bed. She is observed to be steady on her feet. Does not call for assistance, instead will yell out for help. Observed patient to be whimpering, crying out t/o day. Reports severe pain, but unable to answer assessment questions. Patient c/o constipation Miralax & prune juice given, pt reports no BM yet. Vitals stable. Will continue plan if care, awaiting placement.
--- NOTE | 2022-09-13 06:10 | NUR ---
Shift Summary Pt AOx2, labile and impulsive. Calls and omar out when she is having difficulty with a task, sometimes uses call light. C/O constipation tonight, day shift gave a suppository and I called the hospitalist and gave an Fleet Enema. After enema pt still not able to pass the bulk of her stool, suspect a large impaction. Will pass this information to day nurse to notify pt's doctor. VSS, no acute events, pt awaiting placement.
--- NOTE | 2022-09-13 17:49 | NUR ---
DAYSHIFT SUMMARY Patient feeling much better today, recieved Enema on warehouse shift supervisor. Scant red blood noted in toilet, but patient has been straining d/t constipation. Performed rectal exam this morning, no hard stool noted during exam. Patient denies ABD pain, rested comfortably in her room all day, no behaviors or crying out in pain today. Patient refused a shower today. Vitals stable. Will continue plan of care, awaiting discharge planning.
--- NOTE | 2022-09-14 06:19 | NUR ---
Shift Summary PT AOx2, cries out when frustrated, occasionally uses call light. Pt discarded her clothes, still wearing pull ups. Continent, ambulates with 1 SBA to and from bathroom. Pleasant and cooperative with care. VSS, no acute events, slept well though much of the night.
--- NOTE | 2022-09-14 18:45 | NUR ---
SHIFT SUMMARY PT RESTING QUIETLY AT START OF SHIFT, BUT SOON STARTED CRYING IN SLEEP AND LATER CALLING OUT. HX OF [place]EN[place], WAITING PLACEMENT. GUARDIANSHIP LETTER PLACED ON CHART TODAY BY DR MAR. PT UP WITH SBA TO BTHRM THRU OUT THE DAY. PT REFUSING TO USE FWW; MOSTLY STEADY WITH SBA. PT IS CO-OP AT TIMES, BUT GETS EMOTIONAL IF ASKED TO DO SOMETHING THAT SHE DOES NOT WANT TO. NO C/O PAIN. DENIES FURTHER NEEDS AT THIS TIME. CALL LT IN REACH.
--- NOTE | 2022-09-15 06:09 | NUR ---
Patient resting in bed, occasional episodes of calling out.
--- NOTE | 2022-09-15 19:45 | NUR ---
SHIFT SUMMARY: PT A/O X3 IND IN ROOM WITH STANDBY ASSIST REQUESTED. PT COOPERATIVE WITH CARE. PT UP FOR MEALS TODAY AND DID WELL WITH FOLLOWING DIRECTIONS. PT HAD PAIN THIS AM TO R HIP AND SHOULDER WHICH WAS RESOLVED WITH TRAMADOL. NO OTHER CONCERNS OR COMPLAINTS FROM PT TODAY.
--- NOTE | 2022-09-16 06:52 | NUR ---
ALERT AND ORIENTED X2, NO TELE, NO IV ACCESS, ROOM AIR, PATIENT INDEPENTLY UP TO TOILET BUT PUSHES CALL LIGHT, PATIENT CRIED CONTINUOUSLY THROUGHOUT SHIFT. ULTRAM AND TYLENOL GIVEN FOR PAIN. PATIENT TOOK GOWN OFF AND REFUSED TO ALLOW ME TO PUT IT BACK ON. NO EVENTS OVERNIGHT
[2022-09-16 12:47] LABS: BASOPHILS ABSOLUTE AUTO 0.02 K/mm3 (0.00-0.23); BASOPHILS PERCENT AUTO 1 % (0-2); EOSINOPHILS PERCENT AUTO 0 % (0-6); Hematocrit 40.6 % (33.0-51.0); Hemoglobin 13.3 g/dL (11.5-16.0); IMMATURE GRAN ABSOLUTE AUTO 0.01 K/mm3 (0.00-0.10); IMMATURE GRAN PERCENT AUTO 0 % (0-1); LYMPHOCYTES ABSOLUTE AUTO 1.36 K/mm3 (0.84-5.20); LYMPHOCYTES PERCENT AUTO 31 % (21-46); MONOCYTES ABSOLUTE AUTO 0.53 K/mm3 (0.16-1.47); MONOCYTES PERCENT AUTO 12 % (4-13); Mean Corpuscular HGB 30.4 pg (26.0-34.0); Mean Corpuscular HGB Conc 32.8 g/dL (31.5-36.5); Mean Corpuscular Volume 93 fL (80-100); Mean Platelet Volume 11.2 fL (9.1-12.4); NEUTROPHILS ABSOLUTE AUTO 2.46 K/mm3 (1.96-9.15); NEUTROPHILS PERCENT AUTO 56 % (41-73); Platelet Count 240 K/mm3 (150-400); RDW Coefficient Variation 12.9 % (11.7-14.2); RDW Standard Deviation 44.2 fL (35.1-46.3); Red Blood Cell Count 4.37 M/mm3 (3.80-5.20); White Blood Cell Count 4.38 K/mm3 (4.00-11.30)
--- NOTE | 2022-09-16 16:44 | NUR ---
SHIFT SUMMARY: PT A/O X 3, STANDBY ASSIST. PT UP TO CHAIR FOR MEALS TODAY. PT HAD NO COMPLAINTS OF PAIN TODAY. SHE NAPPED OFF AND ON THROUGHOUT THE DAY. HAD SHOWER. WATCHED TV OCCASSIONALLY. PLEASANT AND COOPERATIVE.
--- NOTE | 2022-09-17 06:12 | NUR ---
PATIENT ALERT AND ORIENTED X2, ROOM AIR, NO IV ACCESS, NO TELE, INDEPENDENT TO RESTROOM, HAD A BM 09/16, COMPLAINTS OF PAIN TIMES 2 AND MEDICATED PER EMAR. PATIENT SLEPT VERY WELL THROUGH SHIFT
--- NOTE | 2022-09-17 17:52 | NUR ---
SHIFT SUMMARY: NO NEW CHANGES c PATIENT CONDITION THIS SHIFT. PATIENT ALERT AND ORIENTED TO SELF AND SORROUNDINGS. DENIES GENERALIZED PAIN THIS SHIFT. PATIENT HAS BEEN AMBULATING TO BATHROOM AND BACK IN BED c SBA. PATIENT WAS SITTING UP IN THE RECLINER CHAIR FOR BREAKFAST AND LUNCH. AMBULATES X1 IN THE HALLWAY TODAY. NO IV ACCESS. VITAL SIGNS REVIEWED. AWAITING FOR SAFE PLACEMENT. BED ALARM ON FOR SAFETY. CALL LIGHT IN REACH.
--- NOTE | 2022-09-17 19:33 | NUR ---
AWAKE. DENIES PAIN AND LOSS OF FEELING. NOTE SOMEWHAT PARANOID VERBAL RESPONSE TO QUESTIONS ASKED. CALL LIGHT IN REACH.
--- NOTE | 2022-09-18 03:02 | NUR ---
STAFF DEVELOPMENT COORDINATOR RN SUMMARY OTHER THAN RAPID HR, VSS. NOTED INTERMITTENT ANXIETY RE HER BED COVERS AND WANTING THEM PLACED IN CERTAIN WAYS. NOTE SOME ANXIETY, PARANOID VERBALIZATIONS AND FLIGHT OF IDEAS WHEN TALKING TO HER AT SHIFT COMMENCE. TOLERATED HS MEDS WELL, SEEMED TO CALM SOME. HAS BEEN RESTING QUIETLY AT INTERVALS SINCE. CALL LIGHT IN REACH. WILL CONTINUE TO MONITOR
--- NOTE | 2022-09-18 16:19 | NUR ---
SHIFT SUMMARY: RECEIVED REPORTS FROM LORI RN, PATIENT NOT SLEEPING WELL LAST NIGHT. PER LORI RN PATIENT MIGHT BENIFIT OF INCREASING THE SCHEDULED SEROQUEL DOSE AT NIGHT. NO NEW CHANGES c PATIENT CONDITION THIS SHIFT. PATIENT HAD SHOWER AND LINEN CHANGED THIS AM. CALM, PLEASANT AND COOPERATIVE c CARE. PATIENT REPORTS PAIN TO BACK AND R LEG /. MEDICATED X1 c ULTRAM AND TYLENOL THIS SHIFT. PATIENT REPORTS OF HAVING ADEQUATE RELIEF. PATIENT CONT OF URINE AND STOOL. AMBULATES TO BATHROOM AND BACK TO BED c SBA. VITAL SIGNS REVIEWED. NO IV ACCESS. AWAITING FOR SAFE PLACEMENT. BED ALARM ON FOR SAFETY. CALL LIGHT IN REACH.
--- NOTE | 2022-09-19 06:37 | NUR ---
PATIENT RESTING IN BED
--- NOTE | 2022-09-19 18:16 | NUR ---
PT PLEASNT TODAY. NO C/O PAIN. HASA BEEN AMBULATING TO BATHROOM SBA AND IND. FORGETS TO USE CALL LITE. VSS. STILL PENDING D/C TRANSFER TO SNF. NO NEW CONCERNS NOTED TODAY. BED IN LOW POSITION, CALL LITE IN REACH, BED ALARM ON FOR SAFETY
--- NOTE | 2022-09-20 06:34 | NUR ---
Shift Summary PT AOx2, cooperative with care. Indepenent/SBA in the room, no C/O constipation and no BM tonight. 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 Pt awake for most of the night. C/O pain early in the shift and rcvd PRN tramadol per EMAR. VSS, no acute events.
--- NOTE | 2022-09-20 18:21 | NUR ---
NO ACUTE CHANGES PT AOX3 WITH SOME MOMENTS OF AXIETY. PT CAN BE REDIRECTED AND AMBULATES TO RESTROOM WITH SUPERVISION. BED IS IN LOWEST POSITION NO DISTRESS NOTED AT THIS TIME CALL LIGHT WITHIN REACH WILL CONTINUE TO MONITOR.
--- NOTE | 2022-09-21 04:06 | NUR ---
SHIFT SUMMARY PT SLEEPING OFF AND ON THROUGH THE NIGHT. PT WAKES UP CRYING, SAYING SHE HAS NOT GOTTEN ANY SLEEP AT ALL. I EXPLAINED TO THE PT THAT SHE HAS BEEN SLEEPING, BUT SHE DOES NOT BELIEVE THAT. PT BELIEVES SHE SLEPT ONCE BEING TOLD THAT SHE WAS SNORING. PT CAN BE DEMANDING AT TIMES, IT COMES WITH ANXIETY.
--- NOTE | 2022-09-21 18:17 | NUR ---
PT IS A/OX2 SELF AND PLACE. PT CAN BE FORGETFULL AT TIMES. THE PT IS UP IND IN HER ROOM TO THE BATHROOM THE PT HAS BEEN UP SITTING IN THE CHAIR FOR MOST OF THE DAY. THE PT HAS BEEN MEDICATED FOR PAIN T/O THE DAY. CALL LIGHT IN REACH. WILL CONTINUE TO MONITOR AND ASSESS FOR CHANGES
--- NOTE | 2022-09-22 06:42 | NUR ---
A/OX2; SELF AND PLACE. INTERMITTENTLY ANXIOUS. LABILE. COOPERATIVE C/O RLE PAIN; PRN ANALGESIC GIVEN; SLEEPING AT REASSESSMENT /APPEARS COMFORTABLE. IND TO BATHROOM AWAITING PLACEMENT. SLEEP PROMOTED. CALL LIGHT IN REACH; ENCOURAGED TO MAKE NEEDS KNOWN
--- NOTE | 2022-09-22 17:20 | NUR ---
SHIFT SUMMARY- PT REQUESTED TO SLEEP FOR MOST OF THE DAY. PT DECLINED BREAKFAST AND SITTING UP IN CHAIR. PT AMBULATED TO THE BATHROOM WITH NURSE SUPERVISION. PT FORGETS LIMITATIONS AND IS IMPULSIVE. BED IS IN THE LOWEST POSITION WITH THE CALL LIGHT IN REACH AND BED ALARM ON. PT HAS STATED THAT SHE IS VERY TIRED AND NOT HUNGRY. PT DID EAT SMALL AMOUNT OF LUNCH. PT FAMILY VISITED WANTING UPDATE ON GUARDIANSHIP STATUS. PT FAMILY WAS REFERED TO [facility] A CLASS. PT SEEMS TO BE RESTING COMFORTABLY IN BED.
--- NOTE | 2022-09-23 19:29 | NUR ---
SHIFT SUMMARY- PT IS ALERT AND LYING IN BED. SHE HAS AMBULATED TO THE BATHROOM WITH NURSE SUPERVISION. PT HAS BEEN TEARFUL AND STATING THAT SHE IS IN PAIN BUT CAN NOT TELL ME EXACTLY WHERE OR WHAT IT FEELS LIKE. TREATED PATIENTS PAIN PER EMAR. PT DECLINED BREAKFAST. BED IS IN THE LOWEST POSITION AND THE CALL LIGHT IS WITHIN REACH. CONTINUED EDUCATION PROVIDED ON THE USE OF CALL LIGHT TO ALERT STAFF TO NEEDS.
--- NOTE | 2022-09-24 05:04 | NUR ---
Summary: No acute events overnight. Patient states she is stressed about where she will be discharging to. Reassured patient that we are working with her to find a safe place for her to go to. Patient states it has been a few days since she had a bowel movement. Gave prn miralax. Will pass message along to day shift nurse as well. Patient went for a walk around unit with nurse. Stated her back side was sore encouraged patient to lay on her side. Patient sister came to visit her before bed with a friend.
--- NOTE | 2022-09-24 15:33 | NUR ---
JUNITPER OPERATIONS SUPERVISOR CHEMICAL CLEANING CAME AND SAW PATIENT, JUNIPER INFORMATION FOR IN ROOM IN [place]. POSSIBLE DISCAHRGE ON MONDAY, PATIENT BASELINE OREINTEATION, EASILY RE-DIRECTABLE. CALL LIGHT WITH IN REACH
--- NOTE | 2022-09-24 17:47 | NUR ---
NO CHANGES OR ACUTE CHANGES, JUNNIC PERSON ROUNDED ON PATIENT GATHERING NEEDS INFORMATION, POSSIBLE DISCAHRGE TO [facility] ON MONDAY, PAPERS FOR MARILEE LEFT IN ROOM IN [place], PATIENT CONTINUES TO BE IMPULSIVE, BED ALARM ON, CALL LIGHT WITH IN REACH, WILL RELAY TO PM RN
--- NOTE | 2022-09-25 05:22 | NUR ---
Summary: No acute events overnight. Gave prn miralax. Patient went for a walk around unit with nurse. She was able to do 2 laps. Aox3. Vss. Medicated for pain in back once. Call light in reach. Bed alarm on.
--- NOTE | 2022-09-25 12:00 | NUR ---
MULTIPLE TRIPS TO THE BR, PATIENT NEVER CALLS, CHAIR AND BED ALARMS USED, LARGE BM X3 TODAY
--- NOTE | 2022-09-25 12:09 | NUR ---
DR LONGO ROUNDED ON PATIENT, NO NEW ORDERS
--- NOTE | 2022-09-25 19:07 | NUR ---
NO ACUTE CHANGES, POSSIBLE DISCHARGE TO [facility] ON MONDAY, COURT ON Sep, BED/CHAIR ALARM ALWAYS ON FOR IMPULSIVENESS, NO ACUTE CHANGES, CALL LIGHT WITH IN REACH, RELAYED TOPMR
--- NOTE | 2022-09-26 06:15 | NUR ---
Summary: No acute events overnight. Patient went for a walk around unit with nurse. Aox3. Vss. Medicated for pain per EMAR. Call light in reach. Bed alarm on. Pending placement.
--- NOTE | 2022-09-26 16:17 | NUR ---
SHIFT SUMMARY: NO ACUTE CHANGES THIS SHIFT. PATIENT A&OX3. PATIENT HAS BEEN SITTING UP IN THE RECLINER CHAIR T/O SHIFT. AMBULATES TO BATHROOM c SBA ASSIST. PATIENT DOES NOT USE CALL LIGHT. KEEP SITTING THE CHAIR ALARM OFF T/O THE DAY. AWAITING FOR SAFE PLACEMENT TO [facility]. CHAIR ALARM ON FOR SAFETY. CALL LIGHT IN REACH.
--- NOTE | 2022-09-27 05:17 | NUR ---
SUMMARY: PT A/OX3 AND HAS LABILE AFFECT BUT IS PLEASANT AND COOPERATIVE W/CARE. SCHEDULED SEROQUEL RECIEVED AT HS AND PT SLEPT OFF/ON T/O NOCTE. SHE'D OCC AWAKE TEARFUL AND CALLING INTO HALLS FOR VARIOUS FREQUENT NONACUTE NEEDS. PT WAS MEDICATED W/ULTRAM PRN FOR RELIEF OF GENERALIZED PAIN. VSS/AFEBRILE, NO ACUTE CHANGES. PLACEMENT AND GUARDIANSHIP PENDING. WCTM AND REPORT TO DAY RN.
--- NOTE | 2022-09-27 18:17 | NUR ---
PT IS A/OX3, PLEASANT AND COOPERATIVE. PT OCCASIOANLY HAS EMOTIONAL OUTBURST, HOWEVER , SHE IS EASILY REDIRECTED. TODAY THE PT SLEPT FOR MOST OF THE DAY. PT DECLINED SOME OF HER MEALS. THE PT WAS MEDICATED FOR PAIN X1 TODAY. PT APPEARS TO BE BREATHING EASILY ON RA AT THIS TIME. CALL LIGHT IN REACH. BED ALARM ON. WILL CONTINUE TO MONITOR AND ASSESS FOR CHANGES
--- NOTE | 2022-09-28 05:10 | NUR ---
SUMMARY: PT A/OX2-3 BUT BECOMES VERY EMOTIONAL AND TEARFUL AT TIMES. SHE'S REDIRECTABLE BUT THIS CAN BE BRIEF AT TIMES AND THERE ARE PERIODS WHEN YOU'RE FREQ IN THE ROOM ADDRESSING THE SAME REPEATED CARE NEEDS. SHE WAS MEDICATED W/TYLENOL PRN X1 FOR RELIEF OF GENERAL PAIN. SHE IS SBA TO TOILET AND OFTEN CALLS INTO HALLS FOR ASSIST W/GETTING COMFORTABLE. NO ACUTE CHANGES, VSS AND AFEBRILE. WCTM AND REPORT TO DAY RN.
--- NOTE | 2022-09-28 14:44 | NUR ---
Will met with to do polst.
--- NOTE | 2022-09-28 18:01 | NUR ---
SHIFT SUMMARY- PT IS ALERT, PLESANT, AND COOPERATIVE. SHE IS EATING AND DRINKING WELL. WAS AT BEDSIDE THIS SHIFT. SHE IS AMBULATING TO THE RESTROOM. HER BED IS IN THE LOW POSITION AND CALL LIGHT IS WITHIN REACH.
--- NOTE | 2022-09-29 04:40 | NUR ---
PATIENT IS EMOTIONALLY LABILE BUT COOPERATIVE AND MAKES NEEDS KNOWN. UP TO TOILET WITH SBA FREQUENTLY. VSS. CARES. CALL LIGHT IN REACH. NO EVENTS OVER NIGHT.
--- NOTE | 2022-09-29 17:46 | NUR ---
SHIFT SUMMARY PT AOX1, INCREDIBLY EMOTIONAL AT TIMES BUT CAN BE REDIRECTED. SHE C/O OF PAIN AT THE BEGINNING OF THE SHIFT AND WAS MEDICATED PER THE EMAR. PLAN IS FOR HER TO GO TO [facility] ON MONDAY. WILL REPORT TO ONCOMING NURSE.
--- NOTE | 2022-09-30 04:32 | NUR ---
SHIFT SUMMARY NOC PT A/O TO SELF AND STAFF. PT PLEASANT AND COOPERATIVE WITH CARE. NO ACUTE CHANGES TO REPORT. PT IS AWAITING PLACEMENT AT [facility]. PT IS CURRENTLY RESTING WITH BED ALARM ON, BED IN LOWEST POSITION, AND CALL LIGHT WITHIN REACH. TM.
[2022-09-30 05:10] LABS: CLOZAPINE, SERUM 1184 ng/mL (350-650); NORCLOZAPINE, SERUM 952 ng/mL (Not Estab.); TOTAL(CLOZ+NORCLOZ) 2136 ng/mL (.)
--- NOTE | 2022-09-30 17:19 | NUR ---
SHIFT SUMMARY NO ACUTE CHANGES DURING SHIFT. PT ALERT TO SELF, STAFF, CONTINUED CONFUSION. PT REMAINS ON RA, SBA WITH FWW TO BATHROOM. BED ALARM ON, PT COMPULSIVE AT TIMES. NO IV IN PLACE. PLANS FOR D/C ON MONDAY TO . WILL CONTINUE TO MONITOR. CALL LIGHT WITHIN REACH.
--- NOTE | 2022-10-01 06:19 | NUR ---
PHARMACY TECH SUMMARY NO ACUTE CHANGES. PT A/OX2. PT WILL NOT USE CALL LIGHT WHEN NEEDS ASSISTANCE; MULTPLE ATTEMPTS OOB; BED ALARM SET. PT WILL ALSO CALL OUT VOCALLY WHEN SHE NEEDS HELP. PT WAKEFUL T/O THE NIGHT AND CALLED F/HELP EVERY 30-60 MINUTES FOR HELP W/BLANKETS OR REPOSITIONING TO COMFORT. PT BECOMES VERY EMOTIONAL AT TIMES. PT REPORTS A 10/10 PAIN IN BUTTOCK, LEGS, AND "ALL OVER"; MED P/EMAR. PT SBA W/FWW. PT HAS RASH UNDER RT BREAST AND PANNUS; NYSTATIN APPLIED. CALL LIGHT ACCESSIBLE. BED LOCKED/LOW AND ALARM SET.
--- NOTE | 2022-10-01 17:33 | NUR ---
SHIFT SUMMARY: PT ALERT AND ORIENTED X2. REMINDED PT MULTIPLE TIMES TO USE CALL LIGHT FOR SAFETY. PT WILL AGREE THEN ALMOST INSTANTLY TRY TO GET OUT OF BED W/O ASSISTANCE. PT CALLED OUT ONLY ONCE THIS SHIFT. DESENEX POWDER APPLIED UNDER PT BREASTS DUT TO YEAST. PT HAS NOT C/O ANY PAIN OR N/V. REPOSITIONED PT AND HER BLANKETS FOR COMFORT MULTIPLE TIMES THIS SHIFT. PT CONTINENT TO TOILET BUT WILL GO W/O ASSISTANCE. BED ALARM ON FOR SAFETY. CALL LIGHT IN REACH. BED IN LOWEST POSITION. WILL CONTINUE TO MONITOR.
--- NOTE | 2022-10-02 05:55 | NUR ---
SHIFT SUMMARY NO ACUTE CHANGES THIS SHIFT. AOX2-[facility] VERY FORGETFUL, CONFUSED, IMPULSIVE. YELLS, MOANS OUT EVEN WHEN ASLEEP. VSS. NO S/SX PAIN, N/V OR DYSPNEA. UNABLE TO ANSWER QUESTIONS APPROPRIATE @TIMES, VERY TANGETABLE, NONSENSICAL REPETITIVE SPEECH. DID REPORT CONSTIPATION @HS & ASKED FOR A SUPPOSITORY, TRIED MIRALAX & STOOL SOFTENERS PER EMAR ORDERS, NO RESULTS AT THIS TIME. CALL LIGHT & BED ALARM IN PLACE. WILL MONITOR.
--- NOTE | 2022-10-02 17:03 | NUR ---
SHIFT SUMMARY: PT A/O X2 AT BEST. PT HAS BEEN VERY LETHARGIC TODAY AND DIFFICULT TO AROUSE. PT SAT UP IN CHAIR FOR LUNCH. AROUND 1700 PT STARTED CRYING OUT LOUD. WENT INTO CHECK ON HER AND REPEATED "MY WHOLE LIFE IS TERRIBLE AND N0BODY HAS APPRECIATED ANYTHING I DO" SEVERAL TIMES. ATTEMPTED TO CALM PT AND HAS SINCE SETTLED DOWN AND BACK TO SLEEP. PT CONTINUES TO GET OUT OF BED W/O ASISTANCE. BED ALARM ON AND IN LOWEST POSITION. CALL LIGHT IN REACH. WILL CONTINUE TO MONITOR.
--- NOTE | 2022-10-03 05:32 | NUR ---
SUMMARY: PT A/OX2, AWOKE TO SPECIFY NEEDS AND IS SBA TO TOILET. BED ALARM REMAINS ON FOR FALL RISK AND IMPULSIVITY. SHE WAS MOSTLY PLEASANT AND COOPERATIVE TONIGHT BUT OCCASIONALLY HAS EMOTIONAL LABILITY, REAASURANCE AND COMFORT PROVIDED PRN. PT HAD BOWEL MEDS PER EMAR BUT STILL HASN'T HAD A BM AND REPORTS "CONSTIPATION". WILL ENSURE DAY RN IS AWARE. NO ACUTE CHANGES, VSS, AFEBRILE AND CONT'S TACHY AT 100'S BPM W/O S/S CARDIAC DISTRES. PLAN FOR D/C TO [facility] MONDAY PER RN REPORT. WCTM AND REPORT TO DAY RN.
--- NOTE | 2022-10-03 16:36 | NUR ---
SHIFT SUMMARY: PT A&O X2. PT HAS NOT BEEN IMPULSIVE THIS SHIFT SHE HAS BEEN PREVIOUSLY. PT HAS BEEN SLEEPING FOR MOST OF THE SHIFT. PT STILL HAS NOT HAD BM SINCE 09/29. ATTEMPTED PRUNE JUICE WHICH PT REFUSED TO DRINK. EXPLAINED AND OFFERED SUPPOSITORY THAT PT ALSO DECLINED. PT STATES SHE KNOWS SHE IS CONSTIPATED. PLAN FOR PT TO TRANSFER TO [facility] TOMORROW. PT STATED HER WOULD BE TAKING HER. NO C/O PAIN OR N/V. CALL LIGHT IN REACH. BED IN LOWEST POSITION. WILL CONTINUE TO MONITOR.
--- NOTE | 2022-10-04 04:01 | NUR ---
SHIFT SUMMARY: PT HAS BEEN SLEEPING MOST OF THIS SHIFT. HAS AWOKE A COUPLE OF TIMES CRYING AND GOT UP TO THE BATHROOM WITHOUT USING THE CALL LIGHT. REASSURANCE GIVEN TO PT SHE WAS SAYING "IM SORRY" FOR GETTING UP WITHOUT CALLING. PT IS STANDBY ASSIST. STILL NO REPORT OF BM AT THIS TIME. NO ACUTE CHANGES SO FAR THIS SHIFT. PLAN FOR D/C TO [facility] PER RN REPORT. WILL CONTINUE TO MONITOR THROUGHOUT SHIFT.
[2022-10-04] MEDS ORDERED: APHEN325 M1 PO (12:08)
[2022-10-04] MEDS ORDERED: MIRALAX17 GM PO (12:10)
[2022-10-04] MEDS ORDERED: DOCUZEN 8.6-501 EACH PO (12:10)
[2022-10-04] MEDS ORDERED: QUETIAPINE FUM400 M3 PO (12:11)
[2022-10-04 14:47] LABS: BASOPHILS ABSOLUTE AUTO 0.02 K/mm3 (0.00-0.23); BASOPHILS PERCENT AUTO 0 % (0-2); EOSINOPHILS ABSOLUTE AUTO 0.01 K/mm3 (0.00-0.68); EOSINOPHILS PERCENT AUTO 0 % (0-6); Hematocrit 41.8 % (33.0-51.0); IMMATURE GRAN ABSOLUTE AUTO 0.02 K/mm3 (0.00-0.10); IMMATURE GRAN PERCENT AUTO 0 % (0-1); LYMPHOCYTES ABSOLUTE AUTO 1.41 K/mm3 (0.84-5.20); LYMPHOCYTES PERCENT AUTO 25 % (21-46); MONOCYTES ABSOLUTE AUTO 0.53 K/mm3 (0.16-1.47); MONOCYTES PERCENT AUTO 10 % (4-13); Mean Corpuscular HGB 30.6 pg (26.0-34.0); Mean Corpuscular HGB Conc 33.5 g/dL (31.5-36.5); Mean Corpuscular Volume 91 fL (80-100); Mean Platelet Volume 10.8 fL (9.1-12.4); NEUTROPHILS ABSOLUTE AUTO 3.59 K/mm3 (1.96-9.15); NEUTROPHILS PERCENT AUTO 64 % (41-73); Platelet Count 259 K/mm3 (150-400); RDW Coefficient Variation 12.7 % (11.7-14.2); RDW Standard Deviation 42.5 fL (35.1-46.3); Red Blood Cell Count 4.58 M/mm3 (3.80-5.20); White Blood Cell Count 5.58 K/mm3 (4.00-11.30)
--- NOTE | 2022-10-04 16:54 | NUR ---
PT HAS BEEN AO AND COOPERATIVE OF CARE. PT HAS STATED SHE HAS BEEN CONSTIPATED AND ORDERS WERE ADDED TO EMAR. PT WAS ABLE TO WORK WITH PHYSICAL THERAPY TODAY AND DID WELL STANDING AT BEDSIDE. PT HAS CALL LIGHT WITHIN REACH WILL CONTINUE TO MONITOR.
--- NOTE | 2022-10-04 17:05 | NUR ---
PT AOX2 AND HAS HAD NO ACUTE CHANGES. PT INDEPENDENT TO RESTROOM. PT WILL NOT USE CALL LIGHT AND CALLS OUT. AT TIMES PT CRIES, BUT SEEMS TO RESOLVE. PT HAS CALL LIGHT WITHIN REACH WILL CONTINUE TO MONITOR.
--- NOTE | 2022-10-05 03:39 | NUR ---
TOOL PUSHER SUMMARY NO ACUTE EVENTS THROUGHOUT THE NIGHT. A&OX3. PATIENT EFFECTIVELY COMMUNICATES NEEDS. TANGENTIAL SPEECH AT TIMES. VSS. RR EVEN AND UNLABORED ON RA. PAIN MEDICATED PER EMAR. BED LOW AND LOCKED. CALL LIGHT WITHIN REACH. THIS RN WILL CONTINUE TO MONITOR.
--- NOTE | 2022-10-05 11:13 | NUR ---
PT AOX2 AND COOPERATIVE OF CARE. NO ACUTE CHANGES PT TRANSFERED VIA AMBULANCE TODAY TO [facility]. NO DISTRESS NOTED AND PERSONAL BELONGINGS WITH PT PACKET SENT WITH PT ALONG WITH HER OWN WALKER. LEFT ROOM AT 1027.
--- NOTE | 2022-10-05 21:18 | NUR ---
-tHIS DIRECTOR RETIREMENT IS CHARGE NURSE, HILLARY FROM [facility]-Shivani HORNER WAS NEEDING MEDICATION AND [facility] RESULTS WHICH WAS FAXED TO [phone].
== END 2022-10-05 10:29 | disposition home or self-care (01) ==
LOC: ER 15:27 → MEDS 08-18 15:28
PROVIDERS: Emergency Medicine; Hospitalist; Internal Medicine; ADMIT Internal Medicine
DX: F20.9 Schizophrenia, unspecified (principal); E11.65 Type 2 diabetes mellitus with hyperglycemia; R91.8 Other nonspecific abnormal finding of lung field; E03.9 Hypothyroidism, unspecified; K59.00 Constipation, unspecified; F01.50 Vascular dementia, unspecified severity, without behavioral disturbance, psychotic disturbance, mood disturbance, and anxiety; I50.9 Heart failure, unspecified; Z63.79 Other stressful life events affecting family and household; Z88.0 Allergy status to penicillin; Z88.8 Allergy status to other drugs, medicaments and biological substances; Z91.018 Allergy to other foods; Z79.899 Other long term (current) drug therapy; Z79.82 Long term (current) use of aspirin
CPT/HCPCS: 36415; 71260; 80048; 80053; 81003; 83036; 84145; 84443; 85025; 85027; 87070; 87205; 93005; 93010; 96372; 97162; 97166; 97530; 99285-25; A9270; G0008; G0378; G0480; J1650; Q9967